=== PATIENT | female | born 1975 ===

== ENCOUNTER 2021-11-10 05:55 | Day surgery (SDC) | payer OTHER ==
[~2021-11-10 05:55] MED LIST: SYNTHROID100 MCG PO
== END 2021-11-10 15:25 | disposition home or self-care (01) ==
LOC: CIR.AMB 05:55
PROVIDERS: ATTEND Obstetrics & Gynecology Maternal & Fetal Medicine
DX: N85.02 Endometrial intraepithelial neoplasia [EIN] (principal); Z20.822 Contact with and (suspected) exposure to COVID-19

== ENCOUNTER 2022-03-31 10:11 | Emergency (ER) | payer OTHER ==
[~2022-03-31] VITALS: Ht 160 cm; Wt 75.3 kg
== END 2022-03-31 15:49 | disposition home or self-care (01) ==
LOC: ER 10:11
DX: R10.30 Lower abdominal pain, unspecified (principal); Z20.822 Contact with and (suspected) exposure to COVID-19; Z88.2 Allergy status to sulfonamides